=== PATIENT | male | born 1945 | race African-American/Black ===

== ENCOUNTER 2020-07-13 08:32 | Observation (INO) ==
[2020-07-13] MEDS ORDERED: ACETAMINOPHEN 500 MG TABLET PO STA (09:12)
[2020-07-13 09:21] LABS: Basophils % 0.3 % (0.0-0.8); Eosinophils % 0.4 % (0.00-10.9); Hematocrit 45.6 VOL% (42.0-52.0); Hemoglobin 14.7 GM/DL (14.0-18.0); Immature Granulocytes % 0.4 %; Immature Granulocytes Absolute 0.03 #; Mean Corpuscular HGB Conc 32.2 GM/DL (32-36); Mean Corpuscular Volume 101.6 FL (87-102); Mean Platelet Volume 9.7 FL (9.6-12.0); Monocytes % 8.1 % (1.7-12.7); Neutrophils % 76.8 % (38.7-73.9); Platelet Count 202 T/CUMM (130-400); Red Blood Count 4.49 MC/CUMM (3.8-5.5); Red Cell Distribution Width 13.6 % (9.3-17.3); White Blood Count 7.1 T/CUMM (4-12)
[2020-07-13 09:33] LABS: Alanine Aminotransferase 22 U/L (16-61); Albumin 3.4 G/DL (3.4-5.0); Alkaline Phosphatase 75 U/L (45-117); Aspartate Amino Transferase 17 U/L (0-37); Bilirubin,Total < 0.39 MG/DL (0.2-1.0); Blood Urea Nitrogen 17 MG/DL (7-18); Calcium 8.7 MG/DL (8.5-10.1); Carbon Dioxide 21 MMOL/L (21-32); Estimated Glom Filtration Rate 53 ML/MIN; Glucose 131 MG/DL (74-106); Osmolality,Calculated 286.1 MOS/KG (273-304); Potassium 3.7 MMOL/L (3.5-5.1); Sodium 142 MMOL/L (136-145); Total Protein 8.1 G/DL (6.4-8.2)
[2020-07-13] MEDS ORDERED: LACOSAMIDE 50 MG TABLET PO ONE (09:54)
[2020-07-13] MEDS ORDERED: SODIUM CHLORIDE 0.9% 2,400 ML IV ONE (10:29)
[2020-07-13] MEDS ORDERED: VANCOMYCIN INJ 1,250 MG in SODIUM CHLORIDE 0.9% 250 ML IV SCH (10:30)
[2020-07-13] MEDS ORDERED: PIPERACILLIN/TAZOBACTAM 3,375 MG in SODIUM CHLORIDE 0.9% 100 ML IV SCH (10:30)
[2020-07-13] MEDS ORDERED: SODIUM CHLORIDE 0.9% 100 ML IV ONE (10:35)
[2020-07-13] MEDS ORDERED: PIPERACILLIN/TAZOBACTAM 3,375 MG VIAL IV ONE (10:35)
[2020-07-13 11:26] LABS: Bilirubin,Urine Negative (Negative); Blood, Urine Negative (Negative); Glucose,Urine (UA) Negative (Negative); Ketones,Urine Negative (Negative); Mucus,Urine Occasional /LPF (Occasional); Nitrite,Urine Negative (Negative); Protein,Urine Negative; RBC,Urine 2 /HPF (0-4); Squamous Epithelial Cell,Urine Occasional /HPF (0-10); Urine Appearance CLEAR (Clear); Urine Color Yellow (Yellow); Urine Specific Gravity 1.015 (1.001-1.035); Urine Urobilinogen < 2.0 EU/DL (0.2-1.0); WBC,Urine <1 /HPF (0-6)
[2020-07-13] MEDS ORDERED: ONDANSETRON 4 MG/2 ML VIAL IV PRN (13:00)
[2020-07-13] MEDS ORDERED: ACETAMINOPHEN 325 MG TABLET PO PRN (13:00)
[2020-07-13] MEDS ORDERED: DEXTROSE 50% 25 GM/50 ML VIAL IV PRN (13:00)
[2020-07-13] MEDS ORDERED: hydrALAZINE 20 MG/1 ML VIAL IV PRN (13:00)
[2020-07-13] MEDS ORDERED: GLUCAGON 1 MG VIAL IM PRN (13:00)
[2020-07-13 13:35] LABS: Thyroid Stimulating Hormone 2.39 uIU/ml (0.358-3.74)
[2020-07-13] MEDS: LACTATED RINGERS 1,000 ML IV SCH (14:01)
[2020-07-13] MEDS ORDERED: LACOSAMIDE 50 MG TABLET PO SCH (21:00)
[2020-07-13] MEDS ORDERED: TOPIRAMATE 200 MG TABLET PO SCH (21:00)
[2020-07-13] MEDS ORDERED: ENOXAPARIN 40 MG/0.4 ML SYRINGE SUBCUT SCH (21:00)
[2020-07-14] MEDS: LACTATED RINGERS 1,000 ML IV SCH (01:34)
[2020-07-14 05:55] LABS: Basophils % 0.6 % (0.0-0.8); Eosinophils # 0.1 10*3/uL (0.0-0.87); Eosinophils % 1.7 % (0.00-10.9); Hematocrit 37.1 VOL% (42.0-52.0); Hemoglobin 12.5 GM/DL (14.0-18.0); Immature Granulocytes % 0.4 %; Immature Granulocytes Absolute 0.02 #; Lymphocytes # 1.8 10*3/uL (1.4-4.0); Lymphocytes % 33.7 % (21.2-54.2); Mean Corpuscular HGB Conc 33.7 GM/DL (32-36); Mean Corpuscular Volume 99.5 FL (87-102); Mean Platelet Volume 9.8 FL (9.6-12.0); Neutrophils % 51.6 % (38.7-73.9); Platelet Count 180 T/CUMM (130-400); Red Blood Count 3.73 MC/CUMM (3.8-5.5); Red Cell Distribution Width 13.6 % (9.3-17.3); White Blood Count 5.3 T/CUMM (4-12)
[2020-07-14 06:08] LABS: Calcium 8.6 MG/DL (8.5-10.1); Osmolality,Calculated 290.7 MOS/KG (273-304); Potassium 3.6 MMOL/L (3.5-5.1)
[2020-07-14 07:29] VITALS: BP 131/90
[2020-07-14] MEDS ORDERED: CHOLECALCIFEROL 1,000 UNIT TABLET PO SCH (09:00)
== END 2020-07-14 11:39 | disposition home or self-care (01) ==
LOC: EDBD → N.EDINP 08:32 → N.ED 08:32 → N.5E 12:30
PROVIDERS: ADMIT Internal Medicine Geriatric Medicine; ATTEND Internal Medicine Geriatric Medicine

== ENCOUNTER 2020-07-15 05:06 | Inpatient (IN) ==
[2020-07-15] MEDS ORDERED: LACOSAMIDE INJ 100 MG in SODIUM CHLORIDE 0.9% 50 ML IV STA (05:20)
[2020-07-15] MEDS ORDERED: LACOSAMIDE 200 MG/20 ML VIAL IV ONE (05:31)
[2020-07-15] MEDS ORDERED: SODIUM CHLORIDE 0.9% 1,000 ML IV STA (05:54)
[2020-07-15 06:01] LABS: Basophils % 0.7 % (0.0-0.8); Eosinophils # 0.1 10*3/uL (0.0-0.87); Eosinophils % 2.1 % (0.00-10.9); Hematocrit 41.1 VOL% (42.0-52.0); Hemoglobin 13.9 GM/DL (14.0-18.0); Immature Granulocytes % 0.2 %; Immature Granulocytes Absolute 0.01 #; Lymphocytes # 1.6 10*3/uL (1.4-4.0); Lymphocytes % 27.6 % (21.2-54.2); Mean Corpuscular HGB Conc 33.8 GM/DL (32-36); Mean Platelet Volume 9.5 FL (9.6-12.0); Monocytes % 12.1 % (1.7-12.7); Neutrophils % 57.3 % (38.7-73.9); Platelet Count 178 T/CUMM (130-400); Red Blood Count 4.15 MC/CUMM (3.8-5.5); Red Cell Distribution Width 13.5 % (9.3-17.3); White Blood Count 5.8 T/CUMM (4-12)
[2020-07-15 06:20] LABS: Albumin 3.3 G/DL (3.4-5.0); Bilirubin,Total 0.9 MG/DL (0.2-1.0); Calcium 9.1 MG/DL (8.5-10.1); Potassium 3.5 MMOL/L (3.5-5.1); Total Protein 7.5 G/DL (6.4-8.2)
[2020-07-15 06:45] LABS: Bilirubin,Urine Negative (Negative); Blood, Urine Small mg/dL (Negative); Glucose,Urine (UA) Negative (Negative); Ketones,Urine Negative (Negative); Mucus,Urine Occasional /LPF (Occasional); Nitrite,Urine Negative (Negative); Protein,Urine Negative; RBC,Urine 3 /HPF (0-4); Urine Appearance CLEAR (Clear); Urine Color Yellow (Yellow); Urine Specific Gravity 1.014 (1.001-1.035); Urine Urobilinogen < 2.0 EU/DL (0.2-1.0)
[2020-07-15 07:02] LABS: Barbiturates Screen,Urine Negative (Negative); Benzodiazepines Screen,Urine Negative (Negative); Cannabinoid Screen,Urine Negative (Negative); Opiate Screen,Urine Negative (Negative); Phencyclidine Screen,Urine Negative (Negative)
[2020-07-15] MEDS ORDERED: DEXTROSE 50% 25 GM/50 ML VIAL IV PRN (10:08)
[2020-07-15] MEDS ORDERED: GLUCAGON 1 MG VIAL IM PRN (10:08)
[2020-07-15] MEDS ORDERED: ACETAMINOPHEN 325 MG TABLET PO PRN (10:08)
[2020-07-15] MEDS ORDERED: ONDANSETRON 4 MG/2 ML VIAL IV PRN (10:08)
[2020-07-15] MEDS ORDERED: hydrALAZINE 20 MG/1 ML VIAL IV PRN (10:08)
[2020-07-15] MEDS: ENOXAPARIN 40 MG/0.4 ML SYRINGE SUBCUT SCH (10:31)
[2020-07-15] MEDS: amLODIPine 10 MG TABLET PO SCH (15:59)
[2020-07-15] MEDS: TOPIRAMATE 100 MG TABLET PO SCH (20:03)
[2020-07-15] MEDS: levETIRAcetam 500 MG TABLET PO SCH (20:03)
[2020-07-15] MEDS: SODIUM BICARBONATE 650 MG TABLET PO SCH (20:04)
[2020-07-16 05:41] LABS: Basophils % 0.4 % (0.0-0.8); Eosinophils # 0.2 10*3/uL (0.0-0.87); Hematocrit 40.5 VOL% (42.0-52.0); Hemoglobin 13.1 GM/DL (14.0-18.0); Immature Granulocytes % 0.6 %; Immature Granulocytes Absolute 0.03 #; Lymphocytes # 1.5 10*3/uL (1.4-4.0); Mean Corpuscular HGB Conc 32.3 GM/DL (32-36); Monocytes % 15.1 % (1.7-12.7); Neutrophils % 52.9 % (38.7-73.9); Platelet Count 191 T/CUMM (130-400); Red Blood Count 3.97 MC/CUMM (3.8-5.5); Red Cell Distribution Width 13.5 % (9.3-17.3); White Blood Count 5.4 T/CUMM (4-12)
[2020-07-16 05:55] LABS: Calcium 8.6 MG/DL (8.5-10.1); Osmolality,Calculated 286.8 MOS/KG (273-304); Potassium 3.6 MMOL/L (3.5-5.1)
[2020-07-16] MEDS: THIAMINE 100 MG TABLET PO SCH (10:28)
[2020-07-16] MEDS: levETIRAcetam 500 MG TABLET PO SCH ×2 (10:28→21:05)
[2020-07-16] MEDS: SODIUM BICARBONATE 650 MG TABLET PO SCH ×2 (10:28→21:05)
[2020-07-16] MEDS: amLODIPine 10 MG TABLET PO SCH (10:29)
[2020-07-16] MEDS: PANTOPRAZOLE 40 MG TABLET PO SCH (10:29)
[2020-07-16] MEDS: TOPIRAMATE 100 MG TABLET PO SCH ×2 (10:29→21:05)
[2020-07-16] MEDS: ENOXAPARIN 40 MG/0.4 ML SYRINGE SUBCUT SCH (10:31)
[2020-07-16] MEDS: hydroCHLOROthiazide 12.5 MG CAPSULE PO SCH (12:25)
[2020-07-16] MEDS ORDERED: LORazepam 2 MG/1 ML VIAL IV ONE (17:49)
[2020-07-17] MEDS: amLODIPine 10 MG TABLET PO SCH (10:07)
[2020-07-17] MEDS: SODIUM BICARBONATE 650 MG TABLET PO SCH ×2 (10:07→20:50)
[2020-07-17] MEDS: levETIRAcetam 500 MG TABLET PO SCH ×2 (10:07→20:50)
[2020-07-17] MEDS: hydroCHLOROthiazide 12.5 MG CAPSULE PO SCH (10:07)
[2020-07-17] MEDS: PANTOPRAZOLE 40 MG TABLET PO SCH (10:07)
[2020-07-17] MEDS: TOPIRAMATE 100 MG TABLET PO SCH ×2 (10:07→20:50)
[2020-07-17] MEDS: THIAMINE 100 MG TABLET PO SCH (10:07)
[2020-07-17] MEDS: ENOXAPARIN 40 MG/0.4 ML SYRINGE SUBCUT SCH (10:08)
[2020-07-18 05:09] LABS: Basophils % 0.5 % (0.0-0.8); Eosinophils # 0.1 10*3/uL (0.0-0.87); Eosinophils % 2.2 % (0.00-10.9); Hematocrit 43.5 VOL% (42.0-52.0); Hemoglobin 14.5 GM/DL (14.0-18.0); Immature Granulocytes % 0.2 %; Immature Granulocytes Absolute 0.01 #; Lymphocytes # 1.9 10*3/uL (1.4-4.0); Lymphocytes % 34.4 % (21.2-54.2); Mean Corpuscular HGB Conc 33.3 GM/DL (32-36); Mean Corpuscular Volume 98.9 FL (87-102); Mean Platelet Volume 9.7 FL (9.6-12.0); Monocytes % 11.9 % (1.7-12.7); Neutrophils % 50.8 % (38.7-73.9); Platelet Count 231 T/CUMM (130-400); Red Cell Distribution Width 13.3 % (9.3-17.3); White Blood Count 5.5 T/CUMM (4-12)
[2020-07-18 05:27] LABS: Calcium 8.9 MG/DL (8.5-10.1); Potassium 3.5 MMOL/L (3.5-5.1)
[2020-07-18] MEDS: SODIUM BICARBONATE 650 MG TABLET PO SCH ×2 (09:48→21:20)
[2020-07-18] MEDS: TOPIRAMATE 100 MG TABLET PO SCH ×2 (09:48→21:20)
[2020-07-18] MEDS: amLODIPine 10 MG TABLET PO SCH (09:48)
[2020-07-18] MEDS: ENOXAPARIN 40 MG/0.4 ML SYRINGE SUBCUT SCH (09:48)
[2020-07-18] MEDS: PANTOPRAZOLE 40 MG TABLET PO SCH (09:48)
[2020-07-18] MEDS: levETIRAcetam 500 MG TABLET PO SCH ×2 (09:49→21:21)
[2020-07-18] MEDS: hydroCHLOROthiazide 12.5 MG CAPSULE PO SCH (09:49)
[2020-07-18] MEDS: THIAMINE 100 MG TABLET PO SCH (09:49)
[2020-07-18] MEDS: CHOLECALCIFEROL 1,000 UNIT TABLET PO SCH (09:49)
[2020-07-19 05:24] LABS: Basophils % 0.6 % (0.0-0.8); Eosinophils # 0.2 10*3/uL (0.0-0.87); Hematocrit 41.7 VOL% (42.0-52.0); Hemoglobin 14.2 GM/DL (14.0-18.0); Immature Granulocytes % 0.2 %; Immature Granulocytes Absolute 0.01 #; Lymphocytes # 1.8 10*3/uL (1.4-4.0); Lymphocytes % 36.6 % (21.2-54.2); Mean Corpuscular HGB Conc 34.1 GM/DL (32-36); Mean Corpuscular Volume 97.2 FL (87-102); Mean Platelet Volume 9.3 FL (9.6-12.0); Monocytes % 11.4 % (1.7-12.7); Neutrophils % 48.2 % (38.7-73.9); Platelet Count 212 T/CUMM (130-400); Red Blood Count 4.29 MC/CUMM (3.8-5.5); Red Cell Distribution Width 13.4 % (9.3-17.3); White Blood Count 4.9 T/CUMM (4-12)
[2020-07-19 05:46] LABS: Calcium 8.8 MG/DL (8.5-10.1); Osmolality,Calculated 284.3 MOS/KG (273-304); Potassium 3.6 MMOL/L (3.5-5.1)
[2020-07-19] MEDS: PANTOPRAZOLE 40 MG TABLET PO SCH (09:11)
[2020-07-19] MEDS: SODIUM BICARBONATE 650 MG TABLET PO SCH ×2 (09:11→20:32)
[2020-07-19] MEDS: hydroCHLOROthiazide 12.5 MG CAPSULE PO SCH (09:11)
[2020-07-19] MEDS: CHOLECALCIFEROL 1,000 UNIT TABLET PO SCH (09:11)
[2020-07-19] MEDS: TOPIRAMATE 100 MG TABLET PO SCH ×2 (09:11→20:31)
[2020-07-19] MEDS: THIAMINE 100 MG TABLET PO SCH (09:12)
[2020-07-19] MEDS: amLODIPine 10 MG TABLET PO SCH (09:12)
[2020-07-19] MEDS: levETIRAcetam 500 MG TABLET PO SCH (09:12)
[2020-07-19] MEDS: ENOXAPARIN 40 MG/0.4 ML SYRINGE SUBCUT SCH (11:28)
[2020-07-19] MEDS: levETIRAcetam 250 MG TABLET PO SCH (20:31)
[2020-07-20] MEDS: hydroCHLOROthiazide 12.5 MG CAPSULE PO SCH (08:42)
[2020-07-20] MEDS: PANTOPRAZOLE 40 MG TABLET PO SCH (08:42)
[2020-07-20] MEDS: levETIRAcetam 250 MG TABLET PO SCH ×2 (08:42→20:56)
[2020-07-20] MEDS: CHOLECALCIFEROL 1,000 UNIT TABLET PO SCH (08:42)
[2020-07-20] MEDS: SODIUM BICARBONATE 650 MG TABLET PO SCH ×2 (08:42→20:56)
[2020-07-20] MEDS: amLODIPine 10 MG TABLET PO SCH (08:42)
[2020-07-20] MEDS: THIAMINE 100 MG TABLET PO SCH (08:42)
[2020-07-20] MEDS: TOPIRAMATE 100 MG TABLET PO SCH ×2 (08:42→20:56)
[2020-07-20] MEDS: ENOXAPARIN 40 MG/0.4 ML SYRINGE SUBCUT SCH (11:49)
[2020-07-20] MEDS ORDERED: ALUMINUM/MAGNES/SIMETH MAX STR 30 ML UDCUP PO PRN (23:03)
[2020-07-21 05:15] LABS: Basophils % 0.7 % (0.0-0.8); Eosinophils # 0.2 10*3/uL (0.0-0.87); Eosinophils % 2.9 % (0.00-10.9); Hematocrit 41.5 VOL% (42.0-52.0); Hemoglobin 13.7 GM/DL (14.0-18.0); Immature Granulocytes % 0.4 %; Immature Granulocytes Absolute 0.02 #; Lymphocytes # 1.8 10*3/uL (1.4-4.0); Lymphocytes % 31.8 % (21.2-54.2); Mean Platelet Volume 9.5 FL (9.6-12.0); Monocytes % 11.6 % (1.7-12.7); Neutrophils % 52.6 % (38.7-73.9); Platelet Count 235 T/CUMM (130-400); Red Blood Count 4.11 MC/CUMM (3.8-5.5); Red Cell Distribution Width 12.9 % (9.3-17.3); White Blood Count 5.5 T/CUMM (4-12)
[2020-07-21 05:41] LABS: Calcium 8.5 MG/DL (8.5-10.1); Osmolality,Calculated 284.3 MOS/KG (273-304); Potassium 3.4 MMOL/L (3.5-5.1)
[2020-07-21] MEDS: THIAMINE 100 MG TABLET PO SCH (09:33)
[2020-07-21] MEDS: TOPIRAMATE 100 MG TABLET PO SCH ×2 (09:33→20:53)
[2020-07-21] MEDS: PANTOPRAZOLE 40 MG TABLET PO SCH (09:33)
[2020-07-21] MEDS: levETIRAcetam 250 MG TABLET PO SCH ×2 (09:33→20:53)
[2020-07-21] MEDS: hydroCHLOROthiazide 12.5 MG CAPSULE PO SCH (09:33)
[2020-07-21] MEDS: CHOLECALCIFEROL 1,000 UNIT TABLET PO SCH (09:33)
[2020-07-21] MEDS: SODIUM BICARBONATE 650 MG TABLET PO SCH ×2 (09:33→20:53)
[2020-07-21] MEDS: amLODIPine 10 MG TABLET PO SCH (09:33)
[2020-07-21] MEDS: ENOXAPARIN 40 MG/0.4 ML SYRINGE SUBCUT SCH (09:34)
[2020-07-22] MEDS: PANTOPRAZOLE 40 MG TABLET PO SCH (09:44)
[2020-07-22] MEDS: hydroCHLOROthiazide 12.5 MG CAPSULE PO SCH (09:44)
[2020-07-22] MEDS: amLODIPine 10 MG TABLET PO SCH (09:44)
[2020-07-22] MEDS: THIAMINE 100 MG TABLET PO SCH (09:44)
[2020-07-22] MEDS: levETIRAcetam 250 MG TABLET PO SCH ×2 (09:44→21:00)
[2020-07-22] MEDS: SODIUM BICARBONATE 650 MG TABLET PO SCH ×2 (09:44→20:59)
[2020-07-22] MEDS: CHOLECALCIFEROL 1,000 UNIT TABLET PO SCH (09:44)
[2020-07-22] MEDS: TOPIRAMATE 100 MG TABLET PO SCH ×2 (09:45→21:00)
[2020-07-22] MEDS: ENOXAPARIN 40 MG/0.4 ML SYRINGE SUBCUT SCH (09:45)
[2020-07-22] MEDS: POTASSIUM CHLORIDE 20 MEQ TABLET PO SCH (09:45)
[2020-07-23] MEDS: POTASSIUM CHLORIDE 20 MEQ TABLET PO SCH (08:49)
[2020-07-23] MEDS: CHOLECALCIFEROL 1,000 UNIT TABLET PO SCH (08:49)
[2020-07-23] MEDS: SODIUM BICARBONATE 650 MG TABLET PO SCH ×2 (08:50→20:44)
[2020-07-23] MEDS: levETIRAcetam 250 MG TABLET PO SCH ×2 (08:50→20:44)
[2020-07-23] MEDS: PANTOPRAZOLE 40 MG TABLET PO SCH (08:50)
[2020-07-23] MEDS: TOPIRAMATE 100 MG TABLET PO SCH ×2 (08:50→20:44)
[2020-07-23] MEDS: amLODIPine 10 MG TABLET PO SCH (08:50)
[2020-07-23] MEDS: THIAMINE 100 MG TABLET PO SCH (08:50)
[2020-07-23] MEDS: hydroCHLOROthiazide 12.5 MG CAPSULE PO SCH (08:53)
[2020-07-23] MEDS: ENOXAPARIN 40 MG/0.4 ML SYRINGE SUBCUT SCH (11:36)
[2020-07-24] MEDS: amLODIPine 10 MG TABLET PO SCH (08:46)
[2020-07-24] MEDS: TOPIRAMATE 100 MG TABLET PO SCH ×2 (08:46→21:01)
[2020-07-24] MEDS: levETIRAcetam 250 MG TABLET PO SCH ×2 (08:46→21:01)
[2020-07-24] MEDS: POTASSIUM CHLORIDE 20 MEQ TABLET PO SCH (08:46)
[2020-07-24] MEDS: THIAMINE 100 MG TABLET PO SCH (08:46)
[2020-07-24] MEDS: hydroCHLOROthiazide 12.5 MG CAPSULE PO SCH (08:46)
[2020-07-24] MEDS: CHOLECALCIFEROL 1,000 UNIT TABLET PO SCH (08:47)
[2020-07-24] MEDS: PANTOPRAZOLE 40 MG TABLET PO SCH (08:49)
[2020-07-24] MEDS: SODIUM BICARBONATE 650 MG TABLET PO SCH ×2 (08:49→21:01)
[2020-07-24] MEDS: ENOXAPARIN 40 MG/0.4 ML SYRINGE SUBCUT SCH (12:27)
[2020-07-25] MEDS: PANTOPRAZOLE 40 MG TABLET PO SCH (09:08)
[2020-07-25] MEDS: levETIRAcetam 250 MG TABLET PO SCH ×2 (09:08→23:01)
[2020-07-25] MEDS: SODIUM BICARBONATE 650 MG TABLET PO SCH ×2 (09:08→23:01)
[2020-07-25] MEDS: THIAMINE 100 MG TABLET PO SCH (09:09)
[2020-07-25] MEDS: hydroCHLOROthiazide 12.5 MG CAPSULE PO SCH (09:09)
[2020-07-25] MEDS: amLODIPine 10 MG TABLET PO SCH (09:09)
[2020-07-25] MEDS: POTASSIUM CHLORIDE 20 MEQ TABLET PO SCH (09:09)
[2020-07-25] MEDS: TOPIRAMATE 100 MG TABLET PO SCH ×2 (09:09→23:01)
[2020-07-25] MEDS: CHOLECALCIFEROL 1,000 UNIT TABLET PO SCH (09:09)
[2020-07-25] MEDS: ENOXAPARIN 40 MG/0.4 ML SYRINGE SUBCUT SCH (11:49)
[2020-07-26] MEDS: CHOLECALCIFEROL 1,000 UNIT TABLET PO SCH (10:00)
[2020-07-26] MEDS: hydroCHLOROthiazide 12.5 MG CAPSULE PO SCH (10:00)
[2020-07-26] MEDS: levETIRAcetam 250 MG TABLET PO SCH (10:01)
[2020-07-26] MEDS: ENOXAPARIN 40 MG/0.4 ML SYRINGE SUBCUT SCH (10:01)
[2020-07-26] MEDS: TOPIRAMATE 100 MG TABLET PO SCH (10:01)
[2020-07-26] MEDS: PANTOPRAZOLE 40 MG TABLET PO SCH (10:01)
[2020-07-26] MEDS: amLODIPine 10 MG TABLET PO SCH (10:01)
[2020-07-26] MEDS: SODIUM BICARBONATE 650 MG TABLET PO SCH (10:01)
[2020-07-26] MEDS: THIAMINE 100 MG TABLET PO SCH (10:01)
[2020-07-26] MEDS: POTASSIUM CHLORIDE 20 MEQ TABLET PO SCH (10:01)
[2020-07-26 17:59] VITALS: BP 116/78
== END 2020-07-26 17:15 | DRG 72 ==
LOC: EDUNIT# → EDBD → N.ED 05:06 → N.EDINP 05:06 → SUATTDRO 10:08 → N.EDINP 13:44 → N.3E 13:50
PROVIDERS: ADMIT Internal Medicine Geriatric Medicine; ATTEND Internal Medicine

== ENCOUNTER 2021-03-21 14:57 | Inpatient (IN) ==
[2021-03-21] MEDS ORDERED: SODIUM CHLORIDE 0.9% 1,000 ML IV STA (21:13)
[2021-03-21 22:00] LABS: Basophils % 0.2 % (0.0-0.8); Hemoglobin 16.2 GM/DL (14.0-18.0); Immature Granulocytes % 0.5 %; Immature Granulocytes Absolute 0.03 #; Lymphocytes # 0.8 10*3/uL (1.4-4.0); Lymphocytes % 13.7 % (21.2-54.2); Mean Corpuscular HGB Conc 32.4 GM/DL (32-36); Mean Corpuscular Volume 96.7 FL (87-102); Mean Platelet Volume 11.5 FL (9.6-12.0); Monocytes % 4.4 % (1.7-12.7); Neutrophils % 81.2 % (38.7-73.9); Platelet Count 173 T/CUMM (130-400); Red Blood Count 5.17 MC/CUMM (3.8-5.5); Red Cell Distribution Width 12.6 % (9.3-17.3); White Blood Count 6.1 T/CUMM (4-12)
[2021-03-21 22:15] LABS: Barbiturates Screen,Urine Negative (Negative); Benzodiazepines Screen,Urine Negative (Negative); Cannabinoid Screen,Urine Negative (Negative); Opiate Screen,Urine Negative (Negative); Phencyclidine Screen,Urine Negative (Negative)
[2021-03-21 22:32] LABS: Ferritin 1944.5 ng/mL (26-388)
[2021-03-21 22:33] LABS: Bilirubin,Urine Negative (Negative); Blood, Urine Small mg/dL (Negative); Glucose,Urine (UA) >=500 mg/dL (Negative); Hyaline Casts,Urine 3 /LPF (0-3); Ketones,Urine 80 mg/dL (Negative); Mucus,Urine Occasional /LPF (Occasional); Nitrite,Urine Negative (Negative); Protein,Urine Negative; RBC,Urine 4 /HPF (0-4); Squamous Epithelial Cell,Urine Occasional /HPF (0-10); Urine Appearance Slightly Hazy (Clear); Urine Color Yellow (Yellow); Urine Specific Gravity 1.021 (1.001-1.035); Urine Urobilinogen < 2.0 EU/DL (<2.0)
[2021-03-21 23:50] LABS: Albumin 3.3 G/DL (3.4-5.0); Bilirubin,Total 0.9 MG/DL (0.20-1.00); Calcium 9.5 MG/DL (8.5-10.1); Osmolality,Calculated 302.7 MOS/KG (273-304); Potassium 4.7 MMOL/L (3.5-5.1); Total Protein 10.1 G/DL (6.4-8.2)
[2021-03-22] MEDS ORDERED: SODIUM CHLORIDE 0.9% 1,000 ML IV STA (00:29)
[2021-03-22] MEDS ORDERED: INSULIN REGULAR 100 UNIT/ML IV STA (00:29)
[2021-03-22 01:12] LABS: ABG Base Excess -11.8 MMOL/L (-2.5-2.5); ABG HCO3 15.3 MMOL/L (20-26); ABG Oxygen Saturation 95.2 % (95-100); ABG PCO2 23.9 MM HG (35-48); ABG PO2 85.3 MM HG (80-95); ABG TCO2 11.1 MMOL/L (23-27)
[2021-03-22] MEDS ORDERED: ALBUTEROL 2.5 MG/3 ML NEB RESP TX PRN (02:19)
[2021-03-22] MEDS ORDERED: MELATONIN 3 MG TABLET PO PRN (02:20)
[2021-03-22] MEDS ORDERED: SODIUM BICARB INJ 100 MEQ in STERILE WATER INJ 400 ML IV PRN (02:20)
[2021-03-22] MEDS ORDERED: SODIUM CHLORIDE 0.9% 1,000 ML IV ONE (02:20)
[2021-03-22] MEDS ORDERED: DEXTROSE 50% 25 GM/50 ML SYRINGE IV PRN ×2 (02:20)
[2021-03-22] MEDS ORDERED: INSULIN REGULAR 100 UNIT/ML IV ONE (02:20)
[2021-03-22] MEDS ORDERED: SODIUM CHLORIDE 0.9% IV PRN (02:20)
[2021-03-22] MEDS ORDERED: SODIUM PHOSPHATE IV PRN (02:20)
[2021-03-22] MEDS ORDERED: MAGNESIUM SULF RIDER 2 GM/50 ML PREMIX IV PRN (02:20)
[2021-03-22] MEDS ORDERED: MAGNESIUM SULF RIDER 4 GM/100 ML PREMIX IV PRN (02:20)
[2021-03-22] MEDS ORDERED: INSULIN REGULAR DRIP 100 ML IV SCH (02:30)
[2021-03-22] MEDS ORDERED: diphenhydrAMINE 50 MG/1 ML VIAL IV STA (02:33)
[2021-03-22] MEDS: ENOXAPARIN 30 MG/0.3 ML SYRINGE SUBCUT SCH ×2 (03:01→14:21)
[2021-03-22] MEDS: cefTRIAXone 1,000 MG in SODIUM CHLORIDE 0.9% 100 ML IV SCH (03:01)
[2021-03-22 03:16] LABS: ABG HCO3 15.9 MMOL/L (20-26); ABG Oxygen Saturation 95.8 % (95-100); ABG PCO2 24.3 MM HG (35-48); ABG PH 7.343 (7.35-7.45); ABG PO2 89.2 MM HG (80-95); ABG TCO2 11.6 MMOL/L (23-27)
[2021-03-22 03:17] LABS: Osmolality,Calculated 297.1 MOS/KG (273-304); Potassium 4.5 MMOL/L (3.5-5.1)
[2021-03-22] MEDS: SODIUM CHLORIDE 0.9% 1,000 ML IV SCH ×2 (03:45→05:45)
[2021-03-22 05:17] LABS: Basophils % 0.2 % (0.0-0.8); Hematocrit 39.1 VOL% (42.0-52.0); Hemoglobin 12.9 GM/DL (14.0-18.0); Immature Granulocytes % 0.8 %; Immature Granulocytes Absolute 0.05 #; Lymphocytes # 1.1 10*3/uL (1.4-4.0); Lymphocytes % 17.5 % (21.2-54.2); Mean Corpuscular Volume 96.5 FL (87-102); Mean Platelet Volume 10.9 FL (9.6-12.0); Monocytes % 6.2 % (1.7-12.7); Neutrophils % 75.3 % (38.7-73.9); Platelet Count 156 T/CUMM (130-400); Red Blood Count 4.05 MC/CUMM (3.8-5.5); Red Cell Distribution Width 12.3 % (9.3-17.3); White Blood Count 6.3 T/CUMM (4-12)
[2021-03-22 05:24] LABS: ABG Base Excess -9.3 MMOL/L (-2.5-2.5); ABG Oxygen Saturation 94.8 % (95-100); ABG PCO2 24.5 MM HG (35-48); ABG PH 7.376 (7.35-7.45); ABG TCO2 14.8 MMOL/L (23-27); Allen Test Positive; Pt O2 Delivery Device Room Air
[2021-03-22] MEDS ORDERED: SODIUM CHLORIDE 0.9% 1,000 ML IV SCH (07:30)
[2021-03-22 07:58] LABS: Calcium 7.6 MG/DL (8.5-10.1); Osmolality,Calculated 294.8 MOS/KG (273-304); Potassium 3.2 MMOL/L (3.5-5.1)
[2021-03-22] MEDS: POTASSIUM CHLORIDE RIDER 10 MEQ/100 ML PREMIX IV PRN ×2 (09:42→11:59)
[2021-03-22] MEDS: FAMOTIDINE 20 MG TABLET PO SCH ×2 (09:42→21:48)
[2021-03-22] MEDS: ASCORBIC ACID 500 MG TABLET PO SCH ×2 (09:42→21:48)
[2021-03-22] MEDS: CHOLECALCIFEROL 1,000 UNIT TABLET PO SCH (09:42)
[2021-03-22] MEDS: CETIRIZINE 10 MG TABLET PO SCH (09:42)
[2021-03-22] MEDS: ZINC GLUCONATE 50 MG TABLET PO SCH (09:42)
[2021-03-22 11:29] LABS: Calcium 7.7 MG/DL (8.5-10.1); Osmolality,Calculated 283.3 MOS/KG (273-304); Potassium 3.1 MMOL/L (3.5-5.1)
[2021-03-22] MEDS ORDERED: DEXT 5% NACL 0.45% KCL 20 MEQ 20 MEQ/1,000 ML BAG IV SCH (13:30)
[2021-03-22 14:55] LABS: Calcium 7.7 MG/DL (8.5-10.1); Osmolality,Calculated 283.3 MOS/KG (273-304); Potassium 3.8 MMOL/L (3.5-5.1)
[2021-03-22] MEDS: INSULIN LISPRO 100 UNIT/ML SUBCUT SCH ×3 (15:33→22:13)
[2021-03-22] MEDS: INSULIN ASPART PROTAMINE/ASPART 70/30 100 UNIT/ML SUBCUT SCH (16:49)
[2021-03-22 19:11] LABS: Calcium 7.8 MG/DL (8.5-10.1); Osmolality,Calculated 286.5 MOS/KG (273-304); Potassium 3.2 MMOL/L (3.5-5.1)
[2021-03-22] MEDS ORDERED: SODIUM CHLORIDE 0.45% 1,000 ML IV SCH (19:30)
[2021-03-22] MEDS: POTASSIUM CHLORIDE 20 MEQ TABLET PO PRN (22:13)
[2021-03-22 23:29] LABS: Osmolality,Calculated 285.5 MOS/KG (273-304); Potassium 3.2 MMOL/L (3.5-5.1)
[2021-03-23] MEDS: POTASSIUM CHLORIDE 20 MEQ TABLET PO PRN ×3 (00:02→04:01)
[2021-03-23] MEDS: cefTRIAXone 1,000 MG in SODIUM CHLORIDE 0.9% 100 ML IV SCH (02:30)
[2021-03-23] MEDS: ENOXAPARIN 30 MG/0.3 ML SYRINGE SUBCUT SCH ×2 (02:30→14:10)
[2021-03-23 04:51] LABS: Basophils % 0.2 % (0.0-0.8); Eosinophils % 0.5 % (0.00-10.9); Hematocrit 36.3 VOL% (42.0-52.0); Immature Granulocytes % 0.5 %; Immature Granulocytes Absolute 0.03 #; Lymphocytes # 1.1 10*3/uL (1.4-4.0); Lymphocytes % 20.1 % (21.2-54.2); Mean Corpuscular HGB Conc 33.1 GM/DL (32-36); Mean Corpuscular Volume 95.3 FL (87-102); Mean Platelet Volume 10.7 FL (9.6-12.0); Monocytes % 6.7 % (1.7-12.7); Platelet Count 162 T/CUMM (130-400); Red Blood Count 3.81 MC/CUMM (3.8-5.5); Red Cell Distribution Width 12.5 % (9.3-17.3); White Blood Count 5.5 T/CUMM (4-12)
[2021-03-23 05:08] LABS: Calcium 7.9 MG/DL (8.5-10.1); Osmolality,Calculated 283.1 MOS/KG (273-304); Potassium 3.6 MMOL/L (3.5-5.1)
[2021-03-23] MEDS: INSULIN ASPART PROTAMINE/ASPART 70/30 100 UNIT/ML SUBCUT SCH ×2 (08:59→17:58)
[2021-03-23] MEDS: FAMOTIDINE 20 MG TABLET PO SCH ×2 (08:59→20:28)
[2021-03-23] MEDS: INSULIN LISPRO 100 UNIT/ML SUBCUT SCH ×4 (08:59→20:38)
[2021-03-23] MEDS: CETIRIZINE 10 MG TABLET PO SCH (09:00)
[2021-03-23] MEDS: ZINC GLUCONATE 50 MG TABLET PO SCH (09:00)
[2021-03-23] MEDS: AZITHROMYCIN 250 MG TABLET PO SCH (09:00)
[2021-03-23] MEDS: ASCORBIC ACID 500 MG TABLET PO SCH ×2 (09:00→20:28)
[2021-03-23] MEDS: CHOLECALCIFEROL 1,000 UNIT TABLET PO SCH (09:00)
[2021-03-23] MEDS: NYSTATIN CREAM 15 GM TUBE TOP SCH ×2 (11:28→20:27)
[2021-03-23] MEDS: SODIUM BICARBONATE 650 MG TABLET PO SCH (20:28)
[2021-03-24] MEDS: cefTRIAXone 1,000 MG in SODIUM CHLORIDE 0.9% 100 ML IV SCH (04:06)
[2021-03-24] MEDS: ENOXAPARIN 30 MG/0.3 ML SYRINGE SUBCUT SCH ×2 (04:06→14:39)
[2021-03-24 05:38] LABS: Basophils % 0.2 % (0.0-0.8); Eosinophils % 0.8 % (0.00-10.9); Hematocrit 35.6 VOL% (42.0-52.0); Hemoglobin 11.7 GM/DL (14.0-18.0); Immature Granulocytes Absolute 0.05 #; Lymphocytes # 0.8 10*3/uL (1.4-4.0); Lymphocytes % 16.5 % (21.2-54.2); Mean Corpuscular HGB Conc 32.9 GM/DL (32-36); Mean Corpuscular Volume 95.4 FL (87-102); Mean Platelet Volume 10.6 FL (9.6-12.0); Monocytes % 8.6 % (1.7-12.7); Neutrophils % 72.9 % (38.7-73.9); Platelet Count 194 T/CUMM (130-400); Red Blood Count 3.73 MC/CUMM (3.8-5.5); Red Cell Distribution Width 12.9 % (9.3-17.3); White Blood Count 4.9 T/CUMM (4-12)
[2021-03-24 06:00] LABS: Albumin 2.1 G/DL (3.4-5.0); Bilirubin,Total 1.5 MG/DL (0.20-1.00); Calcium 8.1 MG/DL (8.5-10.1); Potassium 3.3 MMOL/L (3.5-5.1)
[2021-03-24] MEDS: POTASSIUM CHLORIDE 20 MEQ TABLET PO PRN ×2 (06:20→08:18)
[2021-03-24 06:44] LABS: Total Protein (Chem) 6.9 G/DL (6.4-8.3)
[2021-03-24] MEDS: INSULIN LISPRO 100 UNIT/ML SUBCUT SCH ×4 (08:15→21:41)
[2021-03-24] MEDS: AZITHROMYCIN 250 MG TABLET PO SCH (08:16)
[2021-03-24] MEDS: THIAMINE 100 MG TABLET PO SCH (08:16)
[2021-03-24] MEDS: CHOLECALCIFEROL 1,000 UNIT TABLET PO SCH (08:16)
[2021-03-24] MEDS: INSULIN ASPART PROTAMINE/ASPART 70/30 100 UNIT/ML SUBCUT SCH ×2 (08:16→16:32)
[2021-03-24] MEDS: CETIRIZINE 10 MG TABLET PO SCH (08:16)
[2021-03-24] MEDS: NYSTATIN CREAM 15 GM TUBE TOP SCH ×2 (08:16→21:42)
[2021-03-24] MEDS: SODIUM BICARBONATE 650 MG TABLET PO SCH ×3 (08:16→21:42)
[2021-03-24] MEDS: FAMOTIDINE 20 MG TABLET PO SCH ×2 (08:16→21:42)
[2021-03-24] MEDS: ASCORBIC ACID 500 MG TABLET PO SCH ×2 (08:16→21:42)
[2021-03-24] MEDS: ZINC GLUCONATE 50 MG TABLET PO SCH (08:16)
[2021-03-24 09:34] LABS: Albumin (SPE) 3.3 G/DL (3.2-5.3); Albumin (SPE) Rel % 47.8 %; Alpha 1 (SPE) 0.2 G/DL (0.1-0.4); Alpha 1 (SPE) Rel % 3.4 %; Alpha 2 (SPE) 0.8 G/DL (0.4-1.0); Alpha 2 (SPE) Rel % 11.9 %; Beta (SPE) 1.1 G/DL (0.5-1.1); Beta (SPE) Rel % 15.9 %; Gamma (SPE) 1.4 G/DL (0.7-1.7)
[2021-03-25] MEDS ORDERED: ACETAMINOPHEN 325 MG TABLET PO PRN (03:05)
[2021-03-25] MEDS: cefTRIAXone 1,000 MG in SODIUM CHLORIDE 0.9% 100 ML IV SCH (03:17)
[2021-03-25] MEDS: ENOXAPARIN 30 MG/0.3 ML SYRINGE SUBCUT SCH (03:18)
[2021-03-25 04:43] LABS: Basophils % 0.2 % (0.0-0.8); Eosinophils # 0.1 10*3/uL (0.0-0.87); Eosinophils % 1.8 % (0.00-10.9); Hematocrit 35.5 VOL% (42.0-52.0); Hemoglobin 11.8 GM/DL (14.0-18.0); Immature Granulocytes % 0.7 %; Immature Granulocytes Absolute 0.04 #; Lymphocytes % 18.8 % (21.2-54.2); Mean Corpuscular HGB Conc 33.2 GM/DL (32-36); Mean Corpuscular Volume 94.9 FL (87-102); Mean Platelet Volume 10.8 FL (9.6-12.0); Monocytes % 10.6 % (1.7-12.7); Neutrophils % 67.9 % (38.7-73.9); Platelet Count 225 T/CUMM (130-400); Red Blood Count 3.74 MC/CUMM (3.8-5.5); Red Cell Distribution Width 12.9 % (9.3-17.3); White Blood Count 5.5 T/CUMM (4-12)
[2021-03-25 05:05] LABS: Calcium 8.6 MG/DL (8.5-10.1); Osmolality,Calculated 289.1 MOS/KG (273-304); Potassium 3.5 MMOL/L (3.5-5.1)
[2021-03-25] MEDS: INSULIN LISPRO 100 UNIT/ML SUBCUT SCH ×2 (09:31→12:10)
[2021-03-25] MEDS: INSULIN ASPART PROTAMINE/ASPART 70/30 100 UNIT/ML SUBCUT SCH (09:31)
[2021-03-25] MEDS: ASCORBIC ACID 500 MG TABLET PO SCH (09:31)
[2021-03-25] MEDS: SODIUM BICARBONATE 650 MG TABLET PO SCH ×2 (09:31→15:19)
[2021-03-25] MEDS: ZINC GLUCONATE 50 MG TABLET PO SCH (09:32)
[2021-03-25] MEDS: FAMOTIDINE 20 MG TABLET PO SCH (09:32)
[2021-03-25] MEDS: CETIRIZINE 10 MG TABLET PO SCH (09:32)
[2021-03-25] MEDS: THIAMINE 100 MG TABLET PO SCH (09:32)
[2021-03-25] MEDS: AZITHROMYCIN 250 MG TABLET PO SCH (09:32)
[2021-03-25] MEDS: CHOLECALCIFEROL 1,000 UNIT TABLET PO SCH (09:32)
[2021-03-25] MEDS: NYSTATIN CREAM 15 GM TUBE TOP SCH (10:12)
[2021-03-25 12:12] VITALS: BP 113/72
[2021-03-25] MEDS ORDERED: levETIRAcetam 500 MG TABLET PO SCH (21:00)
== END 2021-03-25 15:40 | disposition home health service (06) | DRG 637 ==
LOC: N.ED 14:57 → SUATTDRO 03-22 02:19 → N.EDINP 03-22 02:19 → N.CC 03-22 03:07 → N.5E 03-24 11:56
PROVIDERS: ADMIT Internal Medicine; ATTEND Internal Medicine

== ENCOUNTER 2021-03-27 14:01 | Observation (INO) ==
[2021-03-27 17:08] LABS: Basophils % 0.2 % (0.0-0.8); Eosinophils # 0.1 10*3/uL (0.0-0.87); Eosinophils % 1.9 % (0.00-10.9); Hematocrit 34.7 VOL% (42.0-52.0); Hemoglobin 11.5 GM/DL (14.0-18.0); Immature Granulocytes % 0.8 %; Immature Granulocytes Absolute 0.04 #; Lymphocytes # 1.2 10*3/uL (1.4-4.0); Lymphocytes % 22.5 % (21.2-54.2); Mean Corpuscular HGB Conc 33.1 GM/DL (32-36); Mean Corpuscular Volume 96.1 FL (87-102); Mean Platelet Volume 10.1 FL (9.6-12.0); Monocytes % 16.9 % (1.7-12.7); Neutrophils % 57.7 % (38.7-73.9); Platelet Count 323 T/CUMM (130-400); Red Blood Count 3.61 MC/CUMM (3.8-5.5); Red Cell Distribution Width 12.9 % (9.3-17.3); White Blood Count 5.2 T/CUMM (4-12)
[2021-03-27 17:28] LABS: Anisocytosis Slight; Band Neutrophils 3 % (0-10); Eosinophils 2 % (0-10); Lymphocytes 24 % (20-55); Reactive Lymphocytes Few; Segmented Neutrophils 55 % (50-85); Total Cells Counted 100
[2021-03-27 17:29] LABS: Platelet Estimate Adequate
[2021-03-27 17:32] LABS: Albumin 2.1 G/DL (3.4-5.0); Bilirubin,Total 0.6 MG/DL (0.20-1.00); Calcium 8.3 MG/DL (8.5-10.1); Osmolality,Calculated 285.1 MOS/KG (273-304); Potassium 3.4 MMOL/L (3.5-5.1); Total Protein 7.3 G/DL (6.4-8.2)
[2021-03-27 18:21] LABS: INR 1.1; PT Patient Result 11.7 SECS (10.5-12.0)
[2021-03-27] MEDS ORDERED: AZITHROMYCIN INJ 500 MG in SODIUM CHLORIDE 0.9% 250 ML IV STA (18:35)
[2021-03-27] MEDS ORDERED: cefTRIAXone 1,000 MG in SODIUM CHLORIDE 0.9% 100 ML IV STA (18:35)
[2021-03-27 18:36] LABS: Bilirubin,Urine Negative (Negative); Blood, Urine Moderate mg/dL (Negative); Glucose,Urine (UA) 150 mg/dL (Negative); Hyaline Casts,Urine 11 /LPF (0-3); Ketones,Urine 80 mg/dL (Negative); Mucus,Urine Many /LPF (Occasional); Nitrite,Urine Negative (Negative); Protein,Urine >=500 MG/DL; RBC,Urine 535 /HPF (0-4); Squamous Epithelial Cell,Urine Occasional /HPF (0-10); Urine Appearance Slightly Hazy (Clear); Urine Color Amber (Yellow); Urine Specific Gravity 1.028 (1.001-1.035); Urine Urobilinogen < 2.0 EU/DL (<2.0)
[2021-03-27] MEDS ORDERED: DEXTROSE 50% 25 GM/50 ML VIAL IV PRN (19:54)
[2021-03-27] MEDS ORDERED: ONDANSETRON 4 MG/2 ML VIAL IV PRN (19:54)
[2021-03-27] MEDS ORDERED: ACETAMINOPHEN 325 MG TABLET PO PRN (19:54)
[2021-03-27] MEDS ORDERED: DEXTROSE 50% 25 GM/50 ML SYRINGE IV PRN (19:54)
[2021-03-27] MEDS ORDERED: GLUCAGON 1 MG VIAL IM PRN ×2 (19:54)
[2021-03-27] MEDS ORDERED: ENOXAPARIN 40 MG/0.4 ML SYRINGE SUBCUT SCH (21:00)
[2021-03-27] MEDS: INSULIN REGULAR 100 UNIT/ML SUBCUT SCH (22:57)
[2021-03-27] MEDS: levETIRAcetam 500 MG TABLET PO SCH (22:57)
[2021-03-27] MEDS: SODIUM CHLORIDE 0.45% 1,000 ML IV SCH (22:57)
[2021-03-28 03:53] LABS: Basophils % 0.2 % (0.0-0.8); Eosinophils # 0.1 10*3/uL (0.0-0.87); Eosinophils % 2.1 % (0.00-10.9); Hematocrit 33.4 VOL% (42.0-52.0); Hemoglobin 11.2 GM/DL (14.0-18.0); Immature Granulocytes % 0.9 %; Immature Granulocytes Absolute 0.05 #; Lymphocytes # 1.3 10*3/uL (1.4-4.0); Lymphocytes % 25.2 % (21.2-54.2); Mean Corpuscular HGB Conc 33.5 GM/DL (32-36); Mean Corpuscular Volume 95.2 FL (87-102); Mean Platelet Volume 9.8 FL (9.6-12.0); Monocytes % 17.3 % (1.7-12.7); Neutrophils % 54.3 % (38.7-73.9); Platelet Count 339 T/CUMM (130-400); Red Blood Count 3.51 MC/CUMM (3.8-5.5); Red Cell Distribution Width 12.8 % (9.3-17.3); White Blood Count 5.3 T/CUMM (4-12)
[2021-03-28 04:12] LABS: Eosinophils 3 % (0-10); Lymphocytes 19 % (20-55); Platelet Estimate Adequate; Segmented Neutrophils 68 % (50-85); Total Cells Counted 100
[2021-03-28 04:13] LABS: Hypochromia Slight; Microcytosis Slight
[2021-03-28 04:16] LABS: Calcium 8.3 MG/DL (8.5-10.1); Osmolality,Calculated 278.3 MOS/KG (273-304)
[2021-03-28] MEDS ORDERED: POTASSIUM CHLORIDE 20 MEQ TABLET PO ONE (07:42)
[2021-03-28] MEDS ORDERED: POTASSIUM CHLORIDE INJ 40 MEQ in SODIUM CHLORIDE 0.45% 1,000 ML IV SCH (08:00)
[2021-03-28] MEDS ORDERED: ASCORBIC ACID 500 MG TABLET PO SCH (08:00)
[2021-03-28] MEDS: INSULIN REGULAR 100 UNIT/ML SUBCUT SCH (08:26)
[2021-03-28] MEDS ORDERED: POTASSIUM CHLORIDE 20 MEQ TABLET PO STA (08:45)
[2021-03-28] MEDS: SODIUM CHLORIDE 0.45% 1,000 ML IV SCH (08:55)
[2021-03-28] MEDS ORDERED: AZITHROMYCIN 250 MG TABLET PO SCH (09:00)
[2021-03-28] MEDS ORDERED: SODIUM CHLORIDE 0.45% 1,000 ML IV SCH (09:00)
[2021-03-28] MEDS ORDERED: CHOLECALCIFEROL 1,000 UNIT TABLET PO SCH (09:00)
[2021-03-28] MEDS ORDERED: THIAMINE 100 MG TABLET PO SCH (09:00)
[2021-03-28] MEDS: levETIRAcetam 500 MG TABLET PO SCH (09:05)
[2021-03-28 13:31] VITALS: BP 132/86
[2021-03-28] MEDS ORDERED: cefTRIAXone 1,000 MG in SODIUM CHLORIDE 0.9% 100 ML IV SCH (18:00)
== END 2021-03-28 12:30 | disposition home or self-care (01) ==
LOC: EDUNIT# → EDBD → N.EDINP 14:01 → N.ED 14:01 → SUATTDRO 20:16 → N.EDINP 03-28 12:30
PROVIDERS: ADMIT Internal Medicine; ATTEND Phlebology